=== PATIENT | male | born 1990 | race American Indian/Alaskan Native ===

== ENCOUNTER 2016-10-04 01:39 | Emergency (ER) | payer SELFPAY ==
[2016-10-04] MEDS ORDERED: TYLENOL ONE (01:48)
[2016-10-04] MEDS ORDERED: TYLENOL PO ONE (01:51)
[2016-10-04 01:59] VITALS: BP 116/69
--- NOTE | 2016-10-04 05:02 | Emergency Department Report ---
- General Chief Complaint: Upper Respiratory Infection Stated Complaint: FLU SX Time Seen by Provider: 10/04/16 04:23 Source: patient Mode of arrival: Ambulatory Limitations: No Limitations - History of Present Illness Initial Comments: This is a 25-year-old male that presents with cough, headache, nausea, body aches the past 2 days. Patient stated had a history of this and was diagnosed with the flu. Patient denies any abdominal pain, vomiting, chest pain, shortness of breath, numbness or tingling sensation. Patient denies thunderclap headache. Patient describes headache as a gradual onset due to coughing. Patient denies urinary symptoms. Patient denies wheezing. Patient denies sore throat. Patient describes cough as a dry and denies mucus production. Patient does not seem toxic or ill in appearance. No signs of distress noted. MD Complaint: fever, cough -: Gradual, days(s) (2) Severity: mild Associated Symptoms: fever, chills, headache, cough, nausea. denies: myalgias, diaphoresis, rhinorrhea, nasal congestion, sore throat, stiff neck, chest pain, shortness of breath, abdominal pain, vomiting, diarrhea, dysuria, rash, confusion, right sweats, weight loss, epistaxis, hoarseness, ear pain - Related Data Previous Rx's Medication Instructions Recorded Last Taken Type Amoxicillin/K Clav Tab [Augmentin 1 tab PO Q12HR #14 tab 05/09/16 Unknown Rx 875 mg] Erythromycin [Erythromycin Ophth 10 applic OP QID #1 tube 05/09/16 Unknown Rx Oint] Azithromycin [Zithromax Z-SAVITA] 250 mg PO DAILY 5 Days 10/04/16 Unknown Rx Allergies Allergy/AdvReac Type Severity Reaction Status Date / Time Sulfa (Sulfonamide Allergy Unknown Verified 06/28/14 13:28 Antibiotics) ED Review of Systems ROS: Stated complaint: FLU SX Other details as noted in HPI Constitutional: denies: chills, fever Eyes: denies: eye pain, eye discharge, vision change ENT: denies: ear pain, throat pain, dental pain, hearing loss, epistaxis, congestion Respiratory: cough. denies: orthopnea, shortness of breath, SOB with exertion, SOB at rest, wheezing Cardiovascular: denies: chest pain, palpitations, dyspnea on exertion, orthopnea , edema, syncope, paroxysmal nocturnal dyspnea Endocrine: no symptoms reported Gastrointestinal: denies: abdominal pain, nausea, diarrhea Genitourinary: denies: urgency, dysuria Musculoskeletal: denies: back pain, joint swelling, arthralgia Skin: denies: rash, lesions Neurological: denies: headache, weakness, paresthesias Psychiatric: denies: anxiety, depression Hematological/Lymphatic: denies: easy bleeding, easy bruising ED Past Medical Hx - Past Medical History Previous Medical History?: Yes Hx Asthma: Yes - Surgical History Past Surgical History?: No - Social History Smoking Status: Never Smoker Substance Use Type: None - Medications Home Medications: Home Medications Medication Instructions Recorded Confirmed Last Taken Type Amoxicillin/K Clav Tab [Augmentin 1 tab PO Q12HR #14 tab 05/09/16 Unknown Rx 875 mg] Erythromycin [Erythromycin Ophth 10 applic OP QID #1 tube 05/09/16 Unknown Rx Oint] Azithromycin [Zithromax Z-SAVITA] 250 mg PO DAILY 5 Days 10/04/16 Unknown Rx ED Physical Exam - General Limitations: No Limitations General appearance: alert, in no apparent distress - Head Head exam: Present: atraumatic, normocephalic - Eye Eye exam: Present: normal appearance, PERRL, EOMI Pupils: Present: normal accommodation - ENT ENT exam: Present: normal exam, normal orophraynx, mucous membranes moist, TM's normal bilaterally - Neck Neck exam: Present: normal inspection, full ROM. Absent: tenderness, meningismus, lymphadenopathy, thyromegaly - Respiratory Respiratory exam: Present: normal lung sounds bilaterally. Absent: respiratory distress, wheezes, rales, rhonchi, stridor, chest wall tenderness, accessory muscle use, decreased breath sounds, prolonged expiratory - Cardiovascular Cardiovascular Exam: Present: regular rate, normal rhythm. Absent: bradycardia , tachycardia, systolic murmur, diastolic murmur, rubs, gallop - GI/Abdominal GI/Abdominal exam: Present: soft, normal bowel sounds. Absent: distended, tenderness, guarding, rebound, rigid, hyperactive bowel sounds, hypoactive bowel sounds, mass, bruit, pulsatile mass, hernia - Rectal Rectal exam: Present: deferred - Extremities Exam Extremities exam: Present: normal inspection, full ROM, normal capillary refill. Absent: tenderness, pedal edema, joint swelling, calf tenderness - Back Exam Back exam: Present: normal inspection, full ROM. Absent: tenderness, CVA tenderness (R), CVA tenderness (L) - Neurological Exam Neurological exam: Present: alert, oriented X3, CN II-XII intact, normal gait - Psychiatric Psychiatric exam: Present: normal affect, normal mood - Skin Skin exam: Present: warm, dry, intact, normal color. Absent: rash ED Course Vital Signs 10/04/16 01:45 Temperature 101.0 F H Pulse Rate 87 Respiratory 20 Rate Blood Pressure 116/69 [Right] O2 Sat by Pulse 97 Oximetry ED Medical Decision Making - Medical Decision Making Ed course: This is a 25-year-old male that presents with upper viral respiratory infection 1- patient received acetaminophen by mouth in the ED. 2- patient also received azithromycin by mouth at the time of discharge. I instructed the patient that if symptoms worsen or continue after 10 days to take full course of antibiotics as prescribed. My reasoning as patient does not have primary care doctor and [place] a different [place] per patient. 3- I made the patient aware that this is most likely a viral infection that should subside with [id number] Tylenol for fever as needed, hydration, rest. 4- at the time of discharge the patient does not seem toxic or ill in appearance. No signs of any distress noted. 5- patient was provided with referrals for primary care doctors in the area. 6- at the time of discharge the patient does not seem toxic or ill in appearance. No signs of any distress noted. Patient agrees to discharge plan and treatment. No further questions noted by the patient. 7- influenza negative Critical care attestation.: If time is entered above; I have spent that time in minutes in the direct care of this critically ill patient, excluding procedure time. ED Disposition Clinical Impression: Viral respiratory illness Disposition: DISCHARGED TO HOME OR SELFCARE Is pt being admited?: No Does the pt Need Aspirin: No Condition: Stable Instructions: Azithromycin (By mouth), Fever in Adults (ED) Additional Instructions: Follow-up with a primary care doctor that was referred in 3-5 days Take azithromycin if symptoms continue past 10 days or if symptoms worsen such as wheezing, shortness of breath, productive cough with yellow/green colored in appearance. Report back to emergency room if symptoms worsen and are bearable. If you start taking azithromycin, please finish full course of antibiotics as prescribed. Take Tylenol [id number] to control fever as needed. Increase hydration and rest. Prescriptions: Azithromycin [Zithromax Z-SAVITA] 250 mg PO DAILY 5 Days Referrals: PRIMARY CARE, [Primary Care Provider] - 3-5 Days RIKKI WYNNE MD [Referring] - 3-5 Days JANETTE RASHID MD [Referring] - 3-5 Days LICO MANN MD [Referring] - 3-5 Days HI WOOD MD [Referring] - 3-5 Days [facility] [Outside] - 3-5 Days [facility] [Outside] - 3-5 Days [facility] [Outside] - 3-5 Days
== END 2016-10-04 05:27 | disposition home or self-care (01) ==
LOC: ED 01:39
DX: B34.9 Viral infection, unspecified (principal); R51 Headache; J45.909 Unspecified asthma, uncomplicated; Z88.2 Allergy status to sulfonamides
CPT/HCPCS: 87400; 99282